=== PATIENT | female | born 1960 | race Caucasian/White ===

== ENCOUNTER 2016-07-04 17:10 | Emergency (ER) | payer OTHER ==
[~2016-07-04] VITALS: Ht 157.5 cm; Wt 79.4 kg
[~2016-07-04 17:10] MED LIST: AMOXIL500 MG PO; CRESTOR5 MG PO; NASONEX0.05 MG/Ac IN; POLYTRIM O200 GTT/BO OPH
[2016-07-04 17:14] VITALS: BP 134/87
--- NOTE | 2016-07-04 17:40 | ED THROAT/DENTAL COMPLAINT ---
History of Present Illness General Chief Complaint: General Adult Stated Complaint: PT HAS THROAT PROBLEM Source: patient Exam Limitations: no limitations Vital Signs & Intake/Output Vital Signs & Intake/Output Vital Signs Date Time Temp Pulse Resp B/P Pulse O2 O2 Flow FiO2 Ox Delivery Rate 07/04 1756 97 07/04 1714 97.4 79 18 134/87 99 Room Air Allergies Coded Allergies: erythromycin base (ABD CRAMPING 07/04/16) Reconcile Medications Lidocaine HCl (Lidocaine HCl Viscous) 2 % SOLUTION 15 ML PO 4 TIMES/DAY sore throat magic mouth wash ( maalox, benadryl, lidocaine) Methylprednisolone. (Medrol) 4 MG TAB.DS.PK 1 DP PO AD sore throat 6 on day 1 then reduce by one tablet daily until gone Rosuvastatin Calcium (Crestor) 5 MG TABLET 1 TAB PO DAILY CHOLESTEROL ( Reported) Triage Note: REPORTS "SCRATCHY THROAT" SINCE YESTERDAY. PAINFULL UPON SWALLOWING. DENIED FEVER. Triage Nurses Notes Reviewed? yes Onset: Abrupt Duration: day(s): Timing: recent history Injury Environment: home No Modifying Factors: none HPI: 56-year-old female comes into emergency room with sore throat since yesterday. Mild cough. Mild associated headache and 2 episodes of loose stool. Denies any abdominal pain. She denies fever chills. patient reports some generalized weakness. Postnasal drip. Nothing seems to make the symptoms better or worse. Denies any other associated symptoms. Past History Travel History Traveled to [place] past 21 day No Medical History Any Pertinent Medical History? 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 No Review of Systems Review of Systems Constitutional: Reports: see HPI. EENTM: Reports: see HPI. Respiratory: Reports: see HPI. Cardiovascular: Reports: no symptoms. GI: Reports: no symptoms. Genitourinary: Reports: no symptoms. Musculoskeletal: Reports: no symptoms. Skin: Reports: no symptoms. Neurological/Psychological: Reports: no symptoms. Hematologic/Endocrine: Reports: no symptoms. Immunologic/Allergic: Reports: no symptoms. All Other Systems: Reviewed and Negative Physical Exam Physical Exam General Appearance: well developed/nourished, no apparent distress, alert, awake Head: atraumatic, normal appearance Eyes: Bilateral: normal appearance, EOMI. Nose: normal inspection Mouth/Throat: PHARYNGEAL ERYTHEMA Neck: normal inspection, supple, full range of motion Cardiovascular/Respiratory: normal breath sounds, regular rate/rhythm, no respiratory distress Back: normal inspection Neurologic/Psych: awake, alert, oriented x 3, normal gait, normal mood/affect Skin: intact, normal color Core Measures ACS in differential dx? No Severe Sepsis Present: No Septic Shock Present: No Progress Differential Diagnosis: aspirated tooth, carious tooth, epiglottitis, Ludwigs angina, meningitis, odontogenic abscess, cortney-tonsillar abscess, pharyngeal for. body, stomatitis/gingivitis, strep pharyngitis, tooth fracture Plan of Care: Orders Procedure Date/time Status THROAT CULTURE W/QUICK STREP 07/04 8255 Active Comments: 07/04/2016 7:10:16 PM Patient clinically looks well. Nontoxic appearing. In no apparent distress. Resting comfortably in room. Follow-up with primary care and return to emergency room if any concerns worsening symptoms. Symptoms consistent with upper wrist or infection. Likely viral. Return if any other concerns. Departure Departure Disposition: HOME OR SELF CARE Condition: Stable Clinical Impression Primary Impression: URI (upper respiratory infection) Referrals: MELISSA SERVIN MD (PCP/Family) Additional Instructions: Take Medrol Dosepak and Magic mouthwash as prescribed. Follow-up with your primary care doctor. Motrin and Tylenol at home. Rest. Drink plenty of fluids. Return if any other concerns worsening symptoms. Departure Forms: Customer Survey General Discharge Information Prescriptions: Current Visit Scripts Lidocaine HCl (Lidocaine HCl Viscous) 15 ML PO 4 TIMES/DAY #100 ML magic mouth wash ( maalox, benadryl, lidocaine) Methylprednisolone. (Medrol) 1 DP PO AD #1 DP 6 on day 1 then reduce by one tablet daily until gone
[2016-07-04] MEDS ORDERED: CRESTOR5 M1 PO (18:15)
[2016-07-04] MEDS ORDERED: LIDOCAINE HCL V15 ML PO (18:58)
[2016-07-04] MEDS ORDERED: MEDROL4 M2 PO (18:58)
== END 2016-07-04 19:05 ==
LOC: ERH 17:10
DX: J06.9 Acute upper respiratory infection, unspecified (principal)

== ENCOUNTER 2016-07-08 21:27 | Emergency (ER) | payer OTHER ==
[~2016-07-08 21:27] MED LIST changes: +CRESTOR5 M1 PO; +LIDOCAINE HCL V15 ML PO; +MEDROL4 M2 PO
[2016-07-08 22:18] LABS: ABSOLUTE BASOPHIL COUNT 0.1 /CUMM (0.0-0.2); ABSOLUTE EOSINOPHIL COUNT 0.1 /CUMM (0.0-0.7); ABSOLUTE GRANULOCYTE CT 10.5 /CUMM (1.4-6.5); ABSOLUTE LYMPH COUNT 2.4 /CUMM (1.2-3.4); ABSOLUTE MONOCYTE COUNT 0.9 /CUMM (0.10-0.60); BASOPHIL % 0.5 % (0.0-2.0); EOSINOPHIL % 0.4 % (0-5); HEMATOCRIT 44.3 % (37-47); MEAN CORPUSCULAR HGB 28.1 PG (27.0-31.0); MEAN CORPUSCULAR HGB CONC 32.9 G/DL (33.0-37.0); MEAN CORPUSCULAR VOLUME 85.4 FL (81.0-99.0); MEAN PLATELET VOLUME 7.8 FL (7.4-10.4); PLATELET COUNT 378 /CUMM (130-400); RBC DISTRIBUTION WIDTH 13.3 % (11.5-14.5); RED BLOOD CELL CT 5.19 /CUMM (4.20-5.40); WHITE BLOOD CELL COUNT 13.9 /CUMM (4.8-10.8)
--- NOTE | 2016-07-08 22:32 | ED GENERAL ADULT ---
History of Present Illness General Chief Complaint: General Adult Stated Complaint: ?ANXIETY Source: patient Exam Limitations: no limitations Vital Signs & Intake/Output Vital Signs & Intake/Output Vital Signs Date Time Temp Pulse Resp B/P Pulse O2 O2 Flow FiO2 Ox Delivery Rate 07/08 2320 96.8 87 18 128/66 98 Room Air 07/086 98 Room Air 07/09 2131 113 26 147/93 98 ED Intake and Output 07/09 0000 07/08 1200 Intake Total 0 Output Total Balance 0 Intake, Oral 0 Patient 175 lb Weight Allergies Coded Allergies: erythromycin base (ABD CRAMPING 07/04/16) methylprednisolone (RASH, PALITATIONS, FIDGETY 07/08/16) Reconcile Medications Lidocaine HCl (Lidocaine HCl Viscous) 2 % SOLUTION 15 ML PO 4 TIMES/DAY sore throat magic mouth wash ( maalox, benadryl, lidocaine) Lorazepam (Ativan) 1 MG TABLET 1 TAB PO BID anxeity Methylprednisolone. (Medrol) 4 MG TAB.DS.PK 1 DP PO AD sore throat 6 on day 1 then reduce by one tablet daily until gone Rosuvastatin Calcium (Crestor) 5 MG TABLET 1 TAB PO DAILY CHOLESTEROL ( Reported) Triage Note: PER PT "JUST DON'T FEEL RIGHT, ANXIOUS SWEATY, JITTERY AND NOT RIGHT" STARTED PREDNISONE WEDNESDAY AFTER ED VISIT. Triage Nurses Notes Reviewed? yes Onset: Abrupt Duration: day(s):, constant Timing: recent history Injury Environment: home Severity: moderate, severe HPI: 56-year-old female comes in for further evaluation of palpitations redness to her face and upper chest and feeling anxious. Denies any chest pain or shortness breath. Patient was seen here the other day for sore throat. Patient described Magic mouthwash as well as Medrol Dosepak. Sore throat has improved. Rash is been present since Wednesday but worse over last 24 hours. Patient reports that she's been feeling shaky and anxious. Denies any other associated symptoms. Denies any pain. (KEITH LICEA) Past History Travel History Traveled to [place] past 21 day No Medical History Any Pertinent Medical History? 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 No (KEITH LICEA) Review of Systems Review of Systems Constitutional: Reports: no symptoms. EENTM: Reports: no symptoms. Respiratory: Reports: no symptoms. Cardiovascular: Reports: see HPI. GI: Reports: no symptoms. Genitourinary: Reports: no symptoms. Musculoskeletal: Reports: no symptoms. Skin: Reports: see HPI. Neurological/Psychological: Reports: no symptoms. Hematologic/Endocrine: Reports: no symptoms. Immunologic/Allergic: Reports: no symptoms. All Other Systems: Reviewed and Negative (KEITH LICEA) Physical Exam Physical Exam General Appearance: well developed/nourished, no apparent distress, alert Head: atraumatic, normal appearance Eyes: Bilateral: normal appearance, EOMI. Ears, Nose, Throat: normal pharynx, normal ENT inspection, hearing grossly normal Neck: normal inspection, full range of motion Respiratory: normal breath sounds, no respiratory distress Cardiovascular: regular rate/rhythm, tachycardia Gastrointestinal: soft Back: normal inspection, normal range of motion Extremities: normal range of motion Neurologic/Psych: awake, alert, oriented x 3, normal gait, normal mood/affect Skin: face is red, upper shoulders and chest and back is ready, Core Measures ACS in differential dx? Yes CVA/TIA Diagnosis: No Severe Sepsis Present: No Septic Shock Present: No (KEITH LICEA) Progress Differential Diagnoses I considered the following diagnoses in my evaluation of the patient: Adverse reaction to medication, cardiac arrhythmia, CO, allergic reaction, Plan of Care: Orders Procedure Date/time Status TROPONIN LEVEL 07/08 2204 Complete COMPREHENSIVE METABOLIC PANEL 07/08 2204 Complete CBC WITHOUT DIFFERENTIAL 07/08 2204 Complete EKG 07/08 2130 Active Laboratory Tests 07/08/162203: Anion Gap 11, Estimated GFR > 60, BUN/Creatinine Ratio 18.8, Glucose 101 H, Calcium 9.9, Total Bilirubin 0.6, AST 21, ALT 46, Alkaline Phosphatase 78, Troponin I < 0.01, Total Protein 7.4, Albumin 4.5, Globulin 2.9, Albumin/ Globulin Ratio 1.6, CBC w Diff NO MAN DIFF REQ, RBC 5.19, MCV 85.4, MCH 28.1, RDW 13.3, MPV 7.8, Gran % 75.0, Lymphocytes % 17.6 L, Monocytes % 6.5, Eosinophils % 0.4, Basophils % 0.5, Absolute Granulocytes 10.5 H, Absolute Lymphocytes 2.4, Absolute Monocytes 0.9 H, Absolute Eosinophils 0.1, Absolute Basophils 0.1, PUBS MCHC 32.9 L Initial ED EKG: normal intervals, normal p-waves, normal sinus rhythm, rate (92) , nonspecific ST T wave chg (KEITH LICEA) Departure Departure Disposition: HOME OR SELF CARE Condition: Stable Clinical Impression Primary Impression: Adverse drug reaction Referrals: MALATHI MINA,MELISSA (PCP/Family) Additional Instructions: Take Benadryl at home and Ativan as needed. Follow-up with your primary care doctor. Return if any concerns worsening symptoms. Please go over all results of today's visit with your primary care doctor. Contact your primary care doctor to let them know you were here in the emergency room. There may be nonspecific findings which may not be related to your visit today here in the emergency room but may require further evaluation and chronic monitoring by your primary care doctor. If you had a laceration today the chance of foreign body always remains. You should follow-up with your primary care doctor for recheck in 3-5 days for a wound check. If you had an x-ray done there is a chance that a fracture could have been missed on initial read and you should follow-up with your primary care doctor for repeat x-rays if symptoms persist. If your blood pressure was elevated here in the emergency room please have rechecked by her primary care doctor within the next 48 hours by your primary care doctor. If you were prescribed a narcotic here in the emergency room or any type of controlled substances you're not allowed to drive while taking this medication or operate any type of heavy machinery. Narcotics can make you feel lightheaded dizziness nausea and can cause constipation. 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 Thank you for choosing [facility] emergency room. Please return to the emergency room immediately if you have any other concerns worsening of symptoms. Departure Forms: Customer Survey General Discharge Information Prescriptions: Current Visit Scripts Lorazepam (Ativan) 1 TAB PO BID #10 TAB Comments 07/09/2016 12:22:20 AM Patient clinically looks well. Patient is nontoxic-appearing. Patient is in no apparent distress. Patient resting comfortably in room. Patient feels better after medications here in the emergency room. Redness has improved. Symptoms likely related to side effects from prednisone. Patient told to discontinue the last 2 doses due to resolution of her sore throat. Follow-up with primary care doctor. Return if any other concerns. Patient understands and agrees with plan of care. Case discussed with dr hernandez. (KEITH LICEA) PA/LOG FEEDER Co-Sign Statement Statement: ED Attending supervision documentation- [] I saw and evaluated the patient. I have also reviewed all the pertinent lab results and diagnostic results. I agree with the findings and the plan of care as documented in the PA's/LOG FEEDER's documentation. [X] I have reviewed the ED Record and agree with the PA's/LOG FEEDER's documentation. [] Additions or exceptions (if any) to the PAs/LOG FEEDER's note and plan are summarized below: [] (LEANNE MINA,SOPHIA Noland) Critical Care Note Critical Care Note Critical Care Time: non-applicable (KEITH LICEA)
[2016-07-08 23:20] VITALS: BP 128/66
[2016-07-08] MEDS ORDERED: IBUPROFEN800 M1 PO (23:21)
--- NOTE | 2016-07-08 23:50 | RADIOLOGY REPORT ---
EXAMINATION: CHEST 2 VIEWS CLINICAL INFORMATION: Cough. COMPARISON: None. TECHNIQUE: PA and lateral views of the chest were obtained. FINDINGS: The cardiac silhouette is not enlarged. The mediastinal and hilar contours are unremarkable. There are neither pleural effusions nor pneumothoraces. There are no consolidations. The osseous structures are unremarkable. IMPRESSION: No evidence for acute disease.
[2016-07-09] MEDS ORDERED: ATIVAN1 M1 PO (00:04)
== END 2016-07-09 00:12 ==
LOC: ERH 21:27
PROVIDERS: Physician Assistant Medical
DX: T50.905A Adverse effect of unspecified drugs, medicaments and biological substances, initial encounter (principal); R00.2 Palpitations
CPT/HCPCS: 93005; 93010

== ENCOUNTER 2016-07-15 11:13 | Observation (INO) | payer OTHER ==
[~2016-07-15] VITALS: Ht 154.9 cm; Wt 79.4 kg
[~2016-07-15 11:13] MED LIST changes: +ATIVAN1 M1 PO; +IBUPROFEN800 M1 PO
--- NOTE | 2016-07-15 11:21 | NUR ---
56 Y/O FEMALE C/O "NERVES, ANXIETY" X 1 WEEK. WAS ON PREDNISONE FOR SORE THROAT AND THOUGHT ANXIETY WAS RELATED TO THAT. STOPPED PREDNISONE AND TRIED ATIVAN (PRESCRIBED FROM THIS ED) BUT THEN SAW DR SERVIN AND ATIVAN WAS CHANGED TO 0.5MG XANAX. PT STATES XANAX IS HELPING "BUT DOESNT LAST LONG ENOUGH". DENIES PHYSICAL COMPLAINTS. APPEARS JITTERY IN TRIAGE - LEG BOUNCING NOTED.
--- NOTE | 2016-07-15 11:31 | NUR ---
TRIAGE NOTE APPRECIATED Campos ANDERSON AT BEDSIDE FOR EVAL
[2016-07-15] MEDS ORDERED: ALPRAZOLAM0.5 M4 PO (11:52)
[2016-07-15] MEDS ORDERED: CITALOPRAM HBR20 MG PO (11:52)
--- NOTE | 2016-07-15 12:01 | ED PSYCHIATRIC COMPLAINT ---
History of Present Illness General Chief Complaint: General Adult Stated Complaint: ANXIETY, SORE THROAT Source: patient, family, old records Exam Limitations: no limitations Vital Signs & Intake/Output Vital Signs & Intake/Output Vital Signs Date Time Temp Pulse Resp B/P Pulse O2 O2 Flow FiO2 Ox Delivery Rate 07/15 1430 97.6 78 18 128/82 97 Room Air 07/15 1430 97.6 78 18 128/82 97 Room Air 07/15 1119 97.8 91 18 148/90 100 Room Air Allergies Coded Allergies: erythromycin base (ABD CRAMPING 07/04/16) methylprednisolone (RASH, PALITATIONS, FIDGETY 07/08/16) Reconcile Medications Alprazolam 0.5 MG TABLET 1 TAB PO Q6-PRN PRN ANXIETY (Reported) Citalopram Hydrobromide (Citalopram HBr) 20 MG TABLET 1 TAB PO DAILY MENTAL HEALTH (Reported) Rosuvastatin Calcium (Crestor) 5 MG TABLET 1 TAB PO DAILY CHOLESTEROL ( Reported) Triage Note: 56 Y/O FEMALE C/O "NERVES, ANXIETY" X 1 WEEK. WAS ON PREDNISONE FOR SORE THROAT AND THOUGHT ANXIETY WAS RELATED TO THAT. STOPPED PREDNISONE AND TRIED ATIVAN (PRESCRIBED FROM THIS ED) BUT THEN SAW DR SERVIN AND ATIVAN WAS CHANGED TO 0.5MG XANAX. PT STATES XANAX IS HELPING "BUT DOESNT LAST LONG ENOUGH". DENIES PHYSICAL COMPLAINTS. APPEARS JITTERY IN TRIAGE - LEG BOUNCING NOTED. Triage Nurses Notes Reviewed? yes Onset: 2 weeks Duration: week(s):, constant, continues in ED Timing: recent history Severity: severe Associated Symptoms: anxiety, impaired concentration, insomnia LMP (ages 10-50): post menopausal : No Patient currently breastfeeds: No HPI: 2 weeks prior to admission patient was prescribed Medrol Dosepak for sore throat subsequently developing palpitations difficulty concentrating insomnia and anxiety generalized tremors. She denies fever chills nausea vomiting diarrhea abdominal pain dysuria rash headache bleeding. She's been prescribed citalopram and Xanax with improvement in sleep and anxiety symptoms. Past History Travel History Traveled to [place] past 21 day No Medical History Any Pertinent Medical History? 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 No Review of Systems Review of Systems Constitutional: Reports: no symptoms. EENTM: Reports: no symptoms. Respiratory: Reports: no symptoms. Cardiovascular: Reports: no symptoms. GI: Reports: no symptoms. Genitourinary: Reports: no symptoms. Musculoskeletal: Reports: no symptoms. Skin: Reports: no symptoms. Neurological/Psychological: Reports: see HPI, anxiety, confusion. Hematologic/Endocrine: Reports: no symptoms. Immunologic/Allergic: Reports: no symptoms. All Other Systems: Reviewed and Negative Physical Exam Physical Exam General Appearance: well developed/nourished, alert, awake, anxious, mild distress Head: atraumatic Eyes: Bilateral: PERRL, EOMI. 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 patient not suicidal Progress Differential Diagnosis: drug intoxication, drug overdose, drug withdrawal, electrolyte abnormality, hypoglycemia Plan of Care: Orders Procedure Date/time Status Regular Diet 07/15 L Active Teach/Educate 07/15 1446 Active Pain Treatment and Response 07/15 1446 Active Nutritional Intake, Monitor 07/15 1446 Active Isolation 07/15 1446 Active Patient Care Conference 07/15 1446 Active Patient Data 07/15 1402 Active Intake & Output 07/15 1328 Active OXYGEN SETUP (GEN) 07/15 1321 Active Saline Lock 07/[address] in observation 07/15 1321 Active Vital Signs 07/15 1321 Active Activity/Ambulation 07/15 1321 Active Code Status 07/15 1321 Active TSH REFLEX 07/15 1312 Complete TROPONIN LEVEL 07/15 1312 Complete METANEPHRINE FRACTIONATED Ref$ 07/15 1312 Active COMPREHENSIVE METABOLIC PANEL 07/15 1312 Complete CBC WITHOUT DIFFERENTIAL 07/15 1312 Complete URINE DRUG SCREEN FOR ER ONLY 07/15 1216 Complete URINALYSIS 07/15 1216 Complete Laboratory Tests 07/15/16 1330: Anion Gap 10, Estimated GFR > 60, BUN/Creatinine Ratio 16.7, Glucose 92, Calcium 9.8, Total Bilirubin 0.8, AST 25, ALT 47, Alkaline Phosphatase 74, Troponin I < 0.01, Total Protein 7.4, Albumin 4.3, Globulin 3.1, Albumin/Globulin Ratio 1.4, TSH &T3 &Free T4 Intrp 1.460, CBC w Diff NO MAN DIFF REQ, RBC 5.33, MCV 85.7, MCH 28.6, RDW 13.4, MPV 7.9, Gran % 72.8, Lymphocytes % 20.7, Monocytes % 5.7, Eosinophils % 0.4, Basophils % 0.4, Absolute Granulocytes 7.4 H, Absolute Lymphocytes 2.1, Absolute Monocytes 0.6, Absolute Eosinophils 0, Absolute Basophils 0, PUBS MCHC 33.3 07/15/16 1215: Urine Opiates Screen < 100.00, Methadone Screen < 40, Barbiturate Screen < 60, Ur Phencyclidine Scrn < 6.00, Amphetamines Screen < 100, U Benzodiazepines Scrn 699 H, Urine Cocaine Screen < 50, Urine Cannabis Screen 61.90 H, Urinalysis LIGHT H, Urine Color YEL, Urine Clarity CLEAR, Urine pH 6.0, Ur Specific [place] 1.010, Urine Protein NEG, Urine Ketones TRACE H, Urine Nitrite NEG, Urine Bilirubin NEG, Urine Urobilinogen 0.2, Ur Leukocyte Esterase NEG, Ur Microscopic SEDIMENT EXAMINED, Urine RBC RARE, Urine WBC RARE, Ur Epithelial Cells FEW, Urine Bacteria RARE H, Urine Hemoglobin MOD H, Urine Glucose NEG 07/15/16 1154: Methadone Screen Cancelled, Barbiturate Screen Cancelled, Ur Phencyclidine Scrn Cancelled, Amphetamines Screen Cancelled, U Benzodiazepines Scrn Cancelled, Urine Cocaine Screen Cancelled, Urine Cannabis Screen Cancelled Departure Departure Disposition: STILL A PATIENT Condition: Stable Clinical Impression Primary Impression: Adverse drug reaction Secondary Impressions: Generalized anxiety disorder Referrals: MALATHI MINA,MELISSA (PCP/Family) Departure Forms: Customer Survey General Discharge Information Observation Note Spoke With: JORDI MINA,Tyesha CARMONA Physician Advisor Notified: KENNEDI MINA,ROS Noland Place Patient In: Non-ED OBS Care Area Rationale for Observation: My rational for observation is as follows psychiatry evaluation medication adjustment 24-hour urine collection.
--- NOTE | 2016-07-15 12:18 | NUR ---
URINE SPEC. SENT
--- NOTE | 2016-07-15 13:25 | NUR ---
PLAN IS FOR 23 HOUR ADMISSION TO FLOOR. PT MOVED TO ER ROOM 12. FAMILY AT BEDSIDE. Informed waiting has been performed.
[2016-07-15 13:50] LABS: ABSOLUTE BASOPHIL COUNT 0 /CUMM (0.0-0.2); ABSOLUTE EOSINOPHIL COUNT 0 /CUMM (0.0-0.7); ABSOLUTE GRANULOCYTE CT 7.4 /CUMM (1.4-6.5); ABSOLUTE LYMPH COUNT 2.1 /CUMM (1.2-3.4); ABSOLUTE MONOCYTE COUNT 0.6 /CUMM (0.10-0.60); BASOPHIL % 0.4 % (0.0-2.0); EOSINOPHIL % 0.4 % (0-5); GRANULOCYTE % 72.8 % (42.2-75.2); HEMATOCRIT 45.7 % (37-47); MEAN CORPUSCULAR HGB 28.6 PG (27.0-31.0); MEAN CORPUSCULAR HGB CONC 33.3 G/DL (33.0-37.0); MEAN CORPUSCULAR VOLUME 85.7 FL (81.0-99.0); MEAN PLATELET VOLUME 7.9 FL (7.4-10.4); PLATELET COUNT 370 /CUMM (130-400); RBC DISTRIBUTION WIDTH 13.4 % (11.5-14.5); RED BLOOD CELL CT 5.33 /CUMM (4.20-5.40); WHITE BLOOD CELL COUNT 10.2 /CUMM (4.8-10.8)
[2016-07-15 14:30] VITALS: BP 128/82
--- NOTE | 2016-07-15 14:45 | NUR ---
RESTING ON STRETCHER. RR WNL. FAMILY AT BEDSIDE. AWARE OF WAIT FOR BED ON GEN MED. Informed waiting has been performed.
--- NOTE | 2016-07-15 15:54 | NUR ---
PT STATES THAT SHE IS UNABLE TO VOID AT THIS TIME.
--- NOTE | 2016-07-15 16:20 | History & Physical ---
General Information and HPI Allergies/Medications Allergies: Coded Allergies: erythromycin base (ABD CRAMPING 07/04/16) methylprednisolone (RASH, PALITATIONS, FIDGETY 07/08/16) Home Med list Alprazolam 0.5 MG TABLET 1 TAB PO Q6-PRN PRN ANXIETY (Reported) Citalopram Hydrobromide (Citalopram HBr) 20 MG TABLET 1 TAB PO DAILY MENTAL HEALTH (Reported) Rosuvastatin Calcium (Crestor) 5 MG TABLET 1 TAB PO DAILY CHOLESTEROL ( Reported) Past History Travel History Traveled to [place] past 21 day No Medical History Neurological: NONE EENT: NONE Cardiovascular: hyperlipidemia Respiratory: NONE Gastrointestinal: NONE Hepatic: NONE Renal: NONE Musculoskeletal: NONE Psychiatric: NONE Endocrine: NONE Blood Disorders: NONE Cancer(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
--- NOTE | 2016-07-15 18:30 | NUR ---
FAMILY AT BEDSIDE, PT STATES SHE HAS NO COMPLAINTS AT THIS TIME.. HOUSE STAFF AT BEDSIDE
--- NOTE | 2016-07-15 19:46 | NUR ---
BED ASSIGNMENT [id number]
--- NOTE | 2016-07-15 20:00 | NUR ---
PT MEDICATED PER EMAR WITH XANAX
--- NOTE | 2016-07-15 20:04 | NUR ---
PT AMBUALTES TO BATHROOM WITH STRONG STEADY GAIT... PT TO START 24 HOUR URINE TEST WHEN GOING TO ROOM,
--- NOTE | 2016-07-15 20:22 | NUR ---
REPORT GIVEN TO LUIS MORRIS
--- NOTE | 2016-07-15 21:10 | History & Physical ---
[facility] 07/15/162053: General Information and HPI MD Statement: I have seen and personally examined NAHUN NUR and documented this H&P. The patient is a 56 year old F who presented with a patient stated chief complaint of [anxiety]. Source of Information: patient, family Exam Limitations: no limitations History of Present Illness: Patient is a 56-year-old female with past medical history of hyperlipidemia presented to the ER with a chief complaint of nervousness and anxiety for one week. Patient was seen in the ER about 1 week back for a sore throat and was prescribed a Medrol Dosepak. She took it for about 4 days and started feeling a lot of anxiety, flushing of her face and palpitations. She had insomnia and some generalized tremors. She also mentions a few episodes of diarrhea at home. Denies any chest pain, nausea, vomiting, fevers, chills .She stopped taking the Medrol Dosepak and came to the ER for help and was prescribed Ativan. She then saw her PCP Junior Servin MD who gave her some Xanax and citalopram seemed improved her symptoms. Currently she is taking citalopram and Xanax and does feel improvement in her symptoms. Patient feels that her symptoms are not resolving and she needs further investigation regarding the cause. She is to follow-up with Dr. Gutierrez and Dr. Gutierrez as an outpatient. Does not smoke, no alcohol history, no history of difficult drug abuse. Allergies/Medications Allergies: Coded Allergies: erythromycin base (ABD CRAMPING 07/04/16) methylprednisolone (RASH, PALITATIONS, FIDGETY 07/08/16) Past History Travel History Traveled to [place] past 21 day No Medical History Neurological: NONE EENT: NONE Cardiovascular: hyperlipidemia Respiratory: NONE Gastrointestinal: NONE Hepatic: NONE Renal: NONE Musculoskeletal: NONE Psychiatric: NONE Endocrine: NONE Blood Disorders: NONE Cancer(s): NONE SHANK PAPERER/Reproductive: NONE Isolation History: Standard Surgical History Surgical History: (2) Past Family/Social History Psychosocial History Smoking Status: Never Smoked Review of Systems Review of Systems Constitutional: Reports: weakness. EENTM: Reports: no symptoms. Cardiovascular: Reports: palpitations. Respiratory: Reports: no symptoms. GI: Reports: diarrhea. Genitourinary: Reports: no symptoms. Musculoskeletal: Reports: no symptoms. Skin: Reports: no symptoms. Neurological/Psychological: Reports: anxiety, tremors. Exam & Diagnostic Data Last 24 Hrs of Vital Signs/I&O Vital Signs Date Time Temp Pulse Resp B/P Pulse O2 O2 Flow FiO2 Ox Delivery Rate 07/15 1726 74 18 122/67 95 Room Air 07/15 1430 97.6 78 18 128/82 97 Room Air 07/15 1430 97.6 78 18 128/82 97 Room Air 07/15 1119 97.8 91 18 148/90 100 Room Air Intake & Output 07/15 1600 07/15 0800 07/15 0000 Intake Total 120 Output Total Balance 120 Intake, Oral 120 Patient 79.379 kg Weight Physical Exam General Appearance Alert, Oriented X3, Cooperative, Mild Distress Skin flushed HEENT Atraumatic, PERRLA, EOMI Neck Supple, No JVD Lymphatic Cervical nl Cardiovascular Normal S1, Normal S2, No Murmurs, tachycardic Lungs Clear to Auscultation, Normal Air Movement Abdomen Normal Bowel Sounds, Soft, No Tenderness Neurological Normal Gait, Normal Speech, Strength at 5/5 X4 Ext, Normal Tone, Sensation Intact, Cranial Nerves 3-12 NL, Reflexes 2+ Extremities No Clubbing, No Cyanosis, No Edema, Normal Pulses Assessment/Plan Assessment: Patient is a 56-year-old female with past medical history of hyperlipidemia presented to the ER with a chief complaint of nervousness and anxiety for one week after taking Medrol Dosepak. She also admits to having palpitations, insomnia, diarrhea. Vitals and labs in the ER has been normal. UA benign He tox positive for benzos and cannabis Plan: #Generalized anxiety palpitations, tremor, insomnia: Differentials could be panic attack, generalized anxiety disorder, atrial fibrillation, supraventricular tachycardias, carcinoid syndrome, hyperthyroidism, Allergy reaction to medication -Admit the patient to [facility] -Check an EKG stat -Check vitamin B-12 and vitamin D LEVELS -Closely monitor electrolytes and replete as needed -Check CAT scan of the abdomen to rule out intra-abdominal carcinoid?? -24-hour urine collection for 5 hydroxyindoleacetic acid level -Continue Xanax 1 mg when necessary for anxiety -IV Benadryl as needed -Psychiatry evaluation in a.m. Mild pain pathway Regular diet Full code As Ranked By This Provider Problem List: 1. Palpitations Core Measures/Miscellaneous Acute Coronary Syndrome ACS Diagnosis: No Cerebrovascular Accident CVA/TIA Diagnosis: No Congestive Heart Failure CHF Diagnosis: No Venous Thromboembolism VTE Risk Factors: Age > 40, Obesity No VTE Pharm Prophylaxis d/t: No contraindications VTE Diagnosis: No VTE Type: NONE VTE Confirmed by (Test): NONE Severe Sepsis Severe Sepsis Present: No Septic Shock Septic Shock Present: No Miscellaneous Documentation Attending Case Discussed With: Tyesha GUTIERREZ MD Primary Care Physician: MELISSA SERVIN MD Patient sees these Specialists valarie Level of Patient Care: General Medicine Tyesha GUTIERREZ MD 07/16/16 1034: General Information and HPI Allergies/Medications Home Med list Alprazolam 0.5 MG TABLET 1 TAB PO Q8P PRN ANXIETY Citalopram Hydrobromide (Citalopram HBr) 20 MG TABLET 1 TAB PO DAILY MENTAL HEALTH (Reported) Nystatin 100,000 UNIT/ML ORAL.SUSP 5 ML PO 4 TIMES/DAY THRUSH Rosuvastatin Calcium (Crestor) 5 MG TABLET 1 TAB PO DAILY CHOLESTEROL ( Reported) Core Measures/Miscellaneous Venous Thromboembolism No Mech VTE prophylaxis d/t: VTE low risk Attending MD Review Statement Attending Statement Attending MD Statement: examined this patient, discuss w/resident/PA/COMBINER OPERATOR, agreed w/resident/PA/COMBINER OPERATOR, reviewed EMR data (avail), reviewed images, amended to note Attending Assessment/Plan: I have personally seen and examined the patient, and agree with the above assessment. We will admit the patient for 23 hour observation and start her on antianxiety medications. We will discuss the issues with psychiatry. The patient does have evidence of thrush and will be treated with nystatin swish and swallow. I will continue to follow the patient and provide further recommendations as necessary.
[2016-07-15 21:35] VITALS: BP 142/82
--- NOTE | 2016-07-15 22:00 | NUR ---
NURSING NOTE: PT ARRIVED TO [facility] VIA STRETCHER @ 2039. PT A&O X3, FAMILY @ BEDSIDE. PT APPEARS ANXIOUS/JITTERY, BUT COOPERATIVE. OBSERVATION INTAKE FORM COMPLETED IN ED. PHYSICAL ASSESSMENT COMPLETED. PT ORIENTED TO ROOM, STAFF, AND CALL GABRIEL. PT MADE AWARE OF 24H URINE COLLECTION WHICH WILL BE STARTED AT MIDNIGHT. RN WILL CONTINUE TO MONITOR.
--- NOTE | 2016-07-16 07:07 | PN- Housestaff ---
Subjective Follow-up For: Anxiety Complaints: persistent anxiety related symptoms Subjective: I followed up and examined the patient today. She is alert, seems anxious, fidgety, and is complaining about her fear that her anxiety symptoms are coming back. She says she feels anxious, and that she usually gets flushed up whenever this happens. She denies any chest pain, palpitation, sweating, nausea, vomiting , diarrhea, shortness of breath, fever. Vitals have been stable, no issues overnight. Awaiting psychiatric consultation today. Review of Systems Constitutional: Reports: no symptoms. EENTM: Reports: no symptoms. Cardiovascular: Reports: no symptoms. Respiratory: Reports: no symptoms. Gastrointestinal: Reports: no symptoms. Genitourinary: Reports: no symptoms. Musculoskeletal: Reports: no symptoms. Skin: Reports: see HPI. Neurological/Psychological: Reports: see HPI, anxiety. Denies: confusion, depressed, dementia, headache, numbness, paresthesia, tingling, tremors, tonic-clonic seizures, weakness. Hematologic/Endocrine: Reports: no symptoms. Objective Last 24 Hrs of Vital Signs/I&O Vital Signs Date Time Temp Pulse Resp B/P Pulse O2 O2 Flow FiO2 Ox Delivery Rate 07/16 0824 20 120/84 07/16 0732 97.0 72 0 140/78 96 Room Air 07/15 2135 97.7 72 20 142/82 96 Room Air 07/15 1726 74 18 122/67 95 Room Air Intake & Output 07/16 1600 07/16 0800 07/16 0000 Intake Total 880 200 450 Output Total 600 200 Balance 280 0 450 Intake, IV 0 Intake, Oral 880 200 450 Number 0 Bowel Movements Output, Urine 600 200 Patient 79.379 kg Weight Physical Exam General Appearance: Alert, Oriented X3, Cooperative, Mild Distress, anxious Other Physical Findings: General Appearance Alert, Oriented X3, Cooperative, Mild Distress Skin normal HEENT Atraumatic, PERRLA, EOMI Neck Supple, No JVD Lymphatic Cervical nl Cardiovascular Normal S1, Normal S2, No Murmurs, tachycardic Lungs Clear to Auscultation, Normal Air Movement Abdomen Normal Bowel Sounds, Soft, No Tenderness Neurological anxious, tremors +/-, Normal Gait, Normal Speech, Strength at 5/5 X4 Ext, Normal Tone, Sensation Intact, Cranial Nerves 3-12 NL, Reflexes 2+ Extremities No Clubbing, No Cyanosis, No Edema, Normal Pulses Current Medications: Current Medications Sig/Nayana Start time Last Medication Dose Route Stop Time Status Admin Acetaminophen 325 MG Q6P PRN 07/15 183 AC PO Alprazolam 0 .STK-MED ONE 07/15 1954 DC PO Alprazolam 1 MG TIDPRN PRN 07/15 194 AC 07/16 PO 07/22 1944 0812 Atorvastatin Calcium 5 MG 1700 07/16 0100 AC 07/16 PO 0147 Diphenhydramine HCl 25 MG Q6P PRN 07/15 211 AC PO Enoxaparin Sodium 0 .STK-MED ONE 07/16 1955 DC SC Enoxaparin Sodium 40 MG DAILY 07/15 182 AC SC Nystatin 5 ML 4 TIMES/DAY 07/16 1000 AC 07/16 PO 1427 Oxycodone HCl 5 MG Q6P PRN 07/15 183 AC PO Oxycodone/ 2 TAB Q6P PRN 07/15 183 AC Acetaminophen PO Patient Medication 1 ED .STK-MED ONE 07/16 1358 DC Teaching ED 07/16 1359 Assessment/Plan Assessment: Patient is a 56-year-old female with past medical history of hyperlipidemia, who presented to the ER with chief complaint of nervousness and anxiety for one week after taking Medrol dose-pack for sorethroat. She also admits to having palpitations, insomnia, diarrhea. Vitals and labs in the ER was normal. UA benign He tox positive for benzos and cannabis. She is currently being managed in the general medical floor for the following issues: #Generalized anxiety palpitations, tremor, insomnia: -Continue Xanax 1 mg when necessary for anxiety -negative CAT scan of abdomen ruling out intra-abdominal carcinoid, normal TFT, Vit b12 -Awaiting 24-hour urine collection for 5 hydroxyindoleacetic acid level -Psych consultation appreciated. -She can be discharged according to Psych with her home meds for now and follow up with outpatient Psych service as soon as possible. 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 -Discussed with the patient, will discharge the patient accordingly. Attending notified, and agrees with the plan. #She needs an extension for her observation status, as her 24-hr urine test for 5 hydroxyindoleacetic acid levelis not complete. It will be over at midnight tonight. She can be discharged early tomorrow. #Vitamin D level was low, so supplement started at 1000 U daily. Mild pain pathway Regular diet Full code Problem List: 1. Generalized anxiety disorder Pain Ratin Pain Location: - Pain Goal: Remain pain free Pain Plan: prn Tomorrow's Labs & Rationales: -
[2016-07-16 07:32] VITALS: BP 140/78
[2016-07-16 08:24] VITALS: BP 120/84
--- NOTE | 2016-07-16 09:44 | NUR ---
PT LEFT FLOOR VIA STRETCHER TO CT SCAN.
--- NOTE | 2016-07-16 10:15 | CT SCAN REPORT ---
EXAMINATION: CT ABDOMEN AND PELVIS WITHOUT CONTRAST CLINICAL INFORMATION: 56-year-old female with flushing and palpitations. Evaluate for intra-abdominal tumor. COMPARISON: CT abdomen and pelvis 08/19/2005 TECHNIQUE: Multidetector volumetric imaging was performed from the superior aspect of the liver through the pubic symphysis. Sagittal and coronal reformatted images were obtained on the technologist's workstation. DLP: 424.61 mGy-cm FINDINGS: Limited evaluation of the solid organs and vascular structures secondary to lack of IV contrast. LUNG BASES: Mild linear atelectasis/scarring present at the lung bases. No pericardial effusion. LIVER, GALLBLADDER, AND BILIARY TREE: The unenhanced liver is normal in size, shape, and attenuation. No focal hepatic lesion or biliary ductal dilatation is present. The gallbladder is unremarkable with no evidence of radiopaque gallstones, gallbladder wall thickening, or obvious pericholecystic inflammatory changes. PANCREAS: Unremarkable. SPLEEN: Unremarkable. ADRENAL GLANDS: Unremarkable. KIDNEYS AND URETERS: The kidneys are normal in size, shape, and attenuation. No hydronephrosis, hydroureter, or calculi seen. No perinephric stranding. BLADDER: Unremarkable. GASTROINTESTINAL TRACT: There is no bowel obstruction, free intraperitoneal air or fluid. Appendix is within normal limits. There is mild sigmoid diverticulosis without CT evidence of acute diverticulitis. ABDOMINAL WALL: No significant hernia is appreciated. LYMPH NODES: There are no pathologically enlarged mesenteric, retroperitoneal or pelvic lymph nodes. VASCULAR: Nonaneurysmal abdominal aorta. PELVIC VISCERA: Surgical clips are seen within the pelvis. Uterus is present. No adnexal masses seen. OSSEOUS STRUCTURES: No aggressive osseous lesions. Mild degenerative changes are seen throughout the spine. IMPRESSION: 1. No acute intra-abdominal or pelvic abnormality. No definite intra-abdominal tumor identified on this noncontrast examination. 2. Mild sigmoid diverticulosis without CT evidence of acute diverticulitis.
--- NOTE | 2016-07-16 10:28 | PN- Pulmonary ---
Subjective HPI/Critical Care Issues: The patient is awake and alert. She reports having ongoing intermittent anxiety despite receiving Xanax. She denies any shortness of breath, chest pain, fever, chills, or sputum production. She continues to complain of a sore throat. There were no overnight events reported. Objective Current Medications: Current Medications Sig/Nayana Start time Last Medication Dose Route Stop Time Status Admin Acetaminophen 325 MG Q6P PRN 07/15 1830 AC PO Alprazolam 0 .STK-MED ONE 07/15 1954 DC PO Alprazolam 1 MG TIDPRN PRN 07/15 1945 AC 07/16 PO 07/22 1944 0812 Alprazolam 0 .STK-MED ONE 07/15 1210 DC PO Alprazolam 1 MG ONCE ONE 07/15 1200 DC 07/15 PO 07/15 1201 1209 Atorvastatin Calcium 5 MG 1700 07/16 0100 AC 07/16 PO 0147 Diphenhydramine HCl 25 MG Q6P PRN 07/15 2115 AC PO Enoxaparin Sodium 0 .STK-MED ONE 07/16 1955 DC SC Enoxaparin Sodium 40 MG DAILY 07/15 1822 AC SC Nystatin 5 ML 4 TIMES/DAY 07/16 1000 AC PO Oxycodone HCl 5 MG Q6P PRN 07/15 1830 AC PO Oxycodone/ 2 TAB Q6P PRN 07/15 1830 AC Acetaminophen PO Vital Signs & I&O Last 24 Hrs of Vitals and I&O: Vital Signs Date Time Temp Pulse Resp B/P Pulse O2 O2 Flow FiO2 Ox Delivery Rate 07/16 0824 20 120/84 07/16 0732 97.0 72 0 140/78 96 Room Air 07/15 2135 97.7 72 20 142/82 96 Room Air 07/15 1726 74 18 122/67 95 Room Air 07/15 1430 97.6 78 18 128/82 97 Room Air 07/15 1430 97.6 78 18 128/82 97 Room Air 07/15 1119 97.8 91 18 148/90 100 Room Air Intake & Output 07/16 1600 07/16 0800 07/16 0000 Intake Total 200 450 Output Total 200 Balance 0 450 Intake, IV 0 Intake, Oral 200 450 Output, Urine 200 Patient 175 lb Weight Physical Exam General Appearance Alert, Oriented X3, Cooperative Skin flushed HEENT Atraumatic, PERRLA, EOMI Neck Supple, No JVD Lymphatic Cervical nl Cardiovascular Normal S1, Normal S2, No Murmurs, tachycardic Lungs Clear to Auscultation, Normal Air Movement Abdomen Normal Bowel Sounds, Soft, No Tenderness Extremities No Clubbing, No Cyanosis, No Edema, Normal Pulses Results Last 24 Hrs of Lab Results: Laboratory Tests 07/15/16 1330: Anion Gap 10, Estimated GFR > 60, BUN/Creatinine Ratio 16.7, Glucose 92, Calcium 9.8, Total Bilirubin 0.8, AST 25, ALT 47, Alkaline Phosphatase 74, Troponin I < 0.01, Total Protein 7.4, Albumin 4.3, Globulin 3.1, Albumin/Globulin Ratio 1.4, Vitamin B12 693, 25-OH Vitamin D Total 26.7 L, TSH &T3 &Free T4 Intrp 1.460, CBC w Diff NO MAN DIFF REQ, RBC 5.33, MCV 85.7, MCH 28.6, RDW 13.4, MPV 7.9, Gran % 72.8, Lymphocytes % 20.7, Monocytes % 5.7, Eosinophils % 0.4, Basophils % 0.4, Absolute Granulocytes 7.4 H, Absolute Lymphocytes 2.1, Absolute Monocytes 0.6, Absolute Eosinophils 0, Absolute Basophils 0, PUBS MCHC 33.3 07/15/16 1215: Urine Opiates Screen < 100.00, Methadone Screen < 40, Barbiturate Screen < 60, Ur Phencyclidine Scrn < 6.00, Amphetamines Screen < 100, U Benzodiazepines Scrn 699 H, Urine Cocaine Screen < 50, Urine Cannabis Screen 61.90 H, Urinalysis LIGHT H, Urine Color YEL, Urine Clarity CLEAR, Urine pH 6.0, Ur Specific [place] 1.010, Urine Protein NEG, Urine Ketones TRACE H, Urine Nitrite NEG, Urine Bilirubin NEG, Urine Urobilinogen 0.2, Ur Leukocyte Esterase NEG, Ur Microscopic SEDIMENT EXAMINED, Urine RBC RARE, Urine WBC RARE, Ur Epithelial Cells FEW, Urine Bacteria RARE H, Urine Hemoglobin MOD H, Urine Glucose NEG 07/15/16 1154: Methadone Screen Cancelled, Barbiturate Screen Cancelled, Ur Phencyclidine Scrn Cancelled, Amphetamines Screen Cancelled, U Benzodiazepines Scrn Cancelled, Urine Cocaine Screen Cancelled, Urine Cannabis Screen Cancelled Impression/Plan Impression/Plan Impression/Plan: 1. Anxiety/panic attacks. 2. History of hyperlipidemia. 3. Urine tox screen positive for benzos and cannabis. 4. Thrush. Recommendations: * Await psychiatry input. * Continue Xanax as needed. * Nystatin swish and swallow for thrush. * Continue the patient on the pain pathway. * DVT prophylaxis. * Continue all supportive care.
--- NOTE | 2016-07-16 14:29 | Cons- Psychiatry ---
Psychiatric Consult Date of Consult: 07/16/16 Reason for Consult: "Anxiety" History of Present Illness: Identifying Info: Patient is a 56-year old female who presented to ED with complaints of anxiety and a sore throat. CC: "I've been jittery and nervous over the last two weeks, I don't know what's going on." HPI: Jammie reported symptoms of jitteriness, nervousness, hot flashes, and racing thoughts started approximately two weeks ago. She denied these symptoms prior to then. She denied any relationship stressors; however reported increased stress at work and a growing workload at her job. She suspects new onset anxiety is related to this. She reported experiencing her first "anxiety attack" approximately 2 weeks ago while home. She was subsequently seen by her PCP, Dr. Edward, who prescribed her Celexa 20mg daily and Xanax 0.5mg TID. She reported she felt symptoms had mildly improved on these medicataions, but then again experienced a repeat bout of anxiety leading her to presenting to ED on 07/15/16. She denied excessive intake of caffeine. Utox was (+) for cannabis, however patient did not comment further on this when asked. She denied the use of all other substances. PMH: Hyperlipidemia Please see the H&P for a complete listing Past Psych History: -Outpatient: denied -Inpatient: denied Family Psych History: denied a known family history of psychiatric illness. Substance History: 07/15/16 Utox (+) cannabis. Patient did not disclose use of substances on interview. -Treatment: denied Family Substance History: denied Social: female who resides in [place], [place] with and 30 y/o son. 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 Reports multiple supports, including friends and family. 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 Assessment/Plan Mental Status Mental Status Exam: Presentation/Appearance: Cooperative, easily engaging in conversation. Dressed in hospital garb. Orientation: person, place, time and situation. Sensorium: Awake and alert Eye contact: Appropriate Affect: Calm, constricted Mood: "I feel good now." Depression: 0/10 Anxiety: 2/10 Thought Content: appropriate - Denies SI/HI, AH/VH, PI. States and also believes she will not kill herself. - Denies Hopeless/Helpless Thoughts Thought Process: organized, goal-directed. Speech: normal in rate, tone and volume. Judgment: Fair Insight: Fair Cognition: grossly intact Memory: grossly intact Attention/Concentration: intact Brief ROS Gait: did not observe patient ambulating. Sleep: "good" Appetite: "fine" Energy: "not bad" IADLs/ADLs: independent Lab Results: Laboratory Tests 07/15 1330 Chemistry Sodium (137 - 145 mmol/L) 140 Potassium (3.5 - 5.1 mmol/L) 4.0 Chloride (98 - 107 mmol/L) 105 Carbon Dioxide (22 - 30 mmol/L) 25 Anion Gap (5 - 16) 10 BUN (7 - 17 mg/dL) 10 Creatinine (0.5 - 1.0 mg/dL) 0.6 Estimated GFR (>60 ml/min) > 60 BUN/Creatinine Ratio (7 - 25 %) 16.7 Glucose (65 - 99 mg/dL) 92 Calcium (8.4 - 10.2 mg/dL) 9.8 Total Bilirubin (0.2 - 1.3 mg/dL) 0.8 AST (14 - 36 U/L) 25 ALT (9 - 52 U/L) 47 Alkaline Phosphatase (<127 U/L) 74 Troponin I (< 0.11 ng/ml) < 0.01 Total Protein (6.3 - 8.2 g/dL) 7.4 Albumin (3.5 - 5.0 g/dL) 4.3 Globulin (1.9 - 4.2 gm/dL) 3.1 Albumin/Globulin Ratio (1.1 - 2.2 %) 1.4 Vitamin B12 (239 - 931 pg/mL) 693 25-OH Vitamin D Total (30 - 100 ng/ml) 26.7 L TSH &T3 &Free T4 Intrp (0.270 - 4.20 uIU/mL) 1.460 Hematology CBC w Diff NO MAN DIFF REQ WBC (4.8 - 10.8 /CUMM) 10.2 RBC (4.20 - 5.40 /CUMM) 5.33 Hgb (12.0 - 16.0 G/DL) 15.2 Hct (37 - 47 %) 45.7 MCV (81.0 - 99.0 FL) 85.7 MCH (27.0 - 31.0 PG) 28.6 RDW (11.5 - 14.5 %) 13.4 Plt Count (130 - 400 /CUMM) 370 MPV (7.4 - 10.4 FL) 7.9 Gran % (42.2 - 75.2 %) 72.8 Lymphocytes % (20.5 - 51.1 %) 20.7 Monocytes % (1.7 - 9.3 %) 5.7 Eosinophils % (0 - 5 %) 0.4 Basophils % (0.0 - 2.0 %) 0.4 Absolute Granulocytes (1.4 - 6.5 /CUMM) 7.4 H Absolute Lymphocytes (1.2 - 3.4 /CUMM) 2.1 Absolute Monocytes (0.10 - 0.60 /CUMM) 0.6 Absolute Eosinophils (0.0 - 0.7 /CUMM) 0 Absolute Basophils (0.0 - 0.2 /CUMM) 0 PUBS MCHC (33.0 - 37.0 G/DL) 33.3 07/15 07/15 1215 1154 Toxicology Urine Opiates Screen (>2000 NG/ML) < 100.00 Methadone Screen (>300 NG/ML) < 40 Cancelled Barbiturate Screen (>200 NG/ML) < 60 Cancelled Ur Phencyclidine Scrn (>25 NG/ML) < 6.00 Cancelled Amphetamines Screen (>1000 NG/ML) < 100 Cancelled U Benzodiazepines Scrn (>200 NG/ML) 699 H Cancelled Urine Cocaine Screen (>300 NG/ML) < 50 Cancelled Urine Cannabis Screen (>50 NG/ML) 61.90 H Cancelled Urines Urinalysis LIGHT H Urine Color (YEL,AMB,STR) YEL Urine Clarity (CLEAR) CLEAR Urine pH (5.0 - 8.0) 6.0 Ur Specific [place] (1.001 - 1.035) 1.010 Urine Protein (NEG,<30 MG/DL) NEG Urine Ketones (NEG) TRACE H Urine Nitrite (NEG) NEG Urine Bilirubin (NEG) NEG Urine Urobilinogen (0.1 - 1.0 EU/dl) 0.2 Ur Leukocyte Esterase (NEG) NEG Ur Microscopic SEDIMENT EXAMINED Urine RBC (0 - 5 /HPF) RARE Urine WBC (0 - 2 /HPF) RARE Ur Epithelial Cells (NONE,FEW) FEW Urine Bacteria (NEG/NONE) RARE H Urine Hemoglobin (NEG) MOD H Urine Glucose (N MG/DL) NEG Diffential Diagnosis: Unspecified anxiety disorder R/O Cannabis-induced anxiety disorder R/O Cannabis use disorder Impression: Patient is a 56-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 Utox showed positive for cannabis. There is suspicion anxiety could be related to possible cannabis intoxication versus withdrawal; however, this is difficult to discern given the limited history elicited about cannabis use. Patient identified potential source of stress as work d/t a recent increase in her work-load. She is motivated for outpatient treatment, is agreeable to following up for medication management/individual therapy in the community. She does not present as an imminent risk to herself or others. Provisional Treatment Plan: 1. Patient was not eligable for [facility] given that she is a [facility] [employer] employee. As a result, she was provided a local list of community mental health providers for medication management/therapy. Patient was agreeable to following up with provider list. 2. Patient was also educated on utilizing Employee [employer] Advisor Program (EAP) to identify in-network mental health providers in the community. Patient verbalized understanding of this. 3. Patient to follow-up with mental health provider for further medication management. 4. Patient advised to abstain from cannabis. 5. In the event of an emergency, call 911/go to nearest emergency department. Patient verbalized understanding of all instruction.
--- NOTE | 2016-07-16 15:18 | Patient Discharge Instructions ---
Discharge Instructions General Discharge Information You were seen/treated for: Generalized Anxiety Disorder Special Instructions: Please call to make an appointment with outpatient psychiatry service via employee assistance program as soon as possible after discharge. In case if your medications finish up before getting an appointment, please arrange to meet your PCP for the same to bridge the gap. In any case, please visit your PCP within seven to ten edy fter discharge. Please return to emergency if symptoms worsen. Diet Continue normal diet: Yes Activity Full Activity/No Limits: Yes Acute Coronary Syndrome Inclusion Criteria At DC or during hospital stay patient has or had the following: ACS DIAGNOSIS No Discharge Core Measures Meds if any: Prescribed or Continued at Discharge Meds if any: NOT Prescribed or Continued at Discharge Congestive Heart Failure Inclusion Criteria At DC or during hospital stay patient has or had the following: CHF DIAGNOSIS No Discharge Core Measures Meds if any: Prescribed or Continued at Discharge Meds if any: NOT Prescribed or Continued at Discharge Cerebrovascular accident Inclusion Criteria At DC or during hospital stay patient has or had the following: CVA/TIA Diagnosis No Discharge Core Measures Meds if any: Prescribed or Continued at Discharge Meds if any: NOT Prescribed or Continued at Discharge Venous thromboembolism Inclusion Criteria VTE Diagnosis No VTE Type NONE VTE Confirmed by (Test) NONE Discharge Core Measures - Per Current guidelines, there needs to be overlap - treatment for the first 5 days of Warfarin therapy. - If discharged on Warfarin prior to 5 days of - overlap therapy, the patient will need to be - assessed for post discharge needs including - *Post discharge parental anticoagulation - *Warfarin and/or parental anticoagulation education - *Follow up date to check INR post discharge At least 5 days overlap therapy as Inpatient No Meds if any: Prescribed or Continued at Discharge Note: Overlap Therapy is Warfarin and Anticoagulant Meds if any: NOT Prescribed or Continued at Discharge
[2016-07-16 15:46] VITALS: BP 140/80
[2016-07-16] MEDS ORDERED: NYSTATIN100000 UNI PO (16:24)
--- NOTE | 2016-07-16 16:27 | Discharge Summary ---
Visit Information Visit Dates Admission Date: 07/15/16 Discharge Date: 07/17/2016 Hospital Course Course Attending Physician: Tyesha BACON MD Primary Care Physician: MALATHI MINA,[facility] Course: Ms Barros is a pleasant 56-year-old female with past medical history of hyperlipidemia, who presented to the ER with chief complaint of nervousness and anxiety for one week after taking Medrol dose-pack for sorethroat. She also admits to having palpitations, insomnia, diarrhea. She apparently did not have any reaction to azithromycin, or her respiratory treatments in the past. Vitals and labs in the ER was normal. UA within normal limits. However, urine tox was positive for benzos and cannabis. She was managed in the general medical floor for the following issues: #Generalized anxiety disorder Patient gave history of anxiety, palpitations, flushing, tremulousness, but denied any ethanol or illicit substance abuse. However her urine analysis for toxicology was positive for cannabis and benzos. Obvious trigger was not evident when asking her in the interview, psychiatry service was also seeked, we did remind the diagnosis, and that she does not possess any risk to herself or anyone else. CASANDRA could have been due to optical reasons, stress, cannabis use, or something else could have contributed to her condition. However, she requires an outpatient follow-up, which she is happy to do so, but because she is an employee of [employer], so she will not be able to join [place]'s outpatient program. She has been directed/offered to seek help for her within Hospital employee assistance program. Of note, her primary care physician had started her on alprazolam and citalopram before she arrived in the emergency department. Her home medications have been continued, but alprazolam has been changed for dosage from every 6 hours to every 8 hours. She is to follow-up with her primary care physician and psychiatric services as soon as she will is discharged from the hospital. Patient is stable and understands the plan, and is willing to follow. Of note, her workup with TSH, Vit B12, intra-abdominal carcinoid with a CAT scan of abdomen, was negative for causes of palpitations and related symptoms, and a 24-hour urine collection for 5-hydroxyindoleacetic acid was pending. Her 25 hydroxyvitamin D was 26.7, low, and was started on supplement. She she was also found to have thrush, and was prescribed antifungal accordingly. #She was placed on regular diet, DVT prophylaxis was provided, and she holds a full CODE STATUS. Allergies: Coded Allergies: erythromycin base (ABD CRAMPING 07/04/16) methylprednisolone (RASH, PALITATIONS, FIDGETY 07/08/16) Disposition Summary Disposition Principal Diagnosis: Generalized Anxiety Disorder Additional Diagnosis: Hyperlipidemia Discharge Disposition: home or self care Discharge Instructions General Discharge Information Code Status: Full Code Patient's Diet: Regular diet, heart healthy Patient's Activity: As tolerated. Follow-Up Instructions/Appts: Please call to make an appointment with outpatient psychiatry service via [employer] assistance program as soon as possible after discharge. In case if your medications finish up before getting an appointment, please arrange to meet your PCP for the same to bridge the gap. In any case, please visit your PCP within seven to ten edy fter discharge. Please return to emergency if symptoms worsen. Medications at Discharge Discharge Medications: Continue taking these medications: Rosuvastatin Calcium (Crestor) 5 MG TABLET 1 Tablet ORAL DAILY Qty = 90 Comments: NOT GIVEN IN HOSPITAL Citalopram Hydrobromide (Citalopram HBr) 20 MG TABLET 1 Tablet ORAL DAILY Qty = 30 Comments: NOT GIVEN IN HOSPITAL Start taking the following new medications: Nystatin (Nystatin) 100,000 UNIT/ML ORAL.SUSP 5 [place] ORAL 4 TIMES A DAY Days = 5 No Refills Comments: Last Taken: 07/17/16 Time: 10AM The following medications have been changed: Old: Alprazolam (Alprazolam) 0.5 MG TABLET 1 Tablet ORAL EVERY 6 HOURS NEEDED as needed for ANXIETY Qty = 30 New: Alprazolam (Alprazolam) 0.5 MG TABLET 1 Tablet ORAL EVERY 8 HOURS NEEDED as needed for ANXIETY Days = 15 Comments: Last Taken: 07/17/16 Time: 3AM Copies To: MALATHI MINA,MELISSA
[2016-07-16 23:04] VITALS: BP 116/86
--- NOTE | 2016-07-17 07:14 | PN- Housestaff ---
Subjective Follow-up For: Anxiety Complaints: no complaints Subjective: Patient stable, and decreased anxiety, you to go home today Review of Systems Constitutional: Reports: no symptoms. Cardiovascular: Reports: no symptoms. Respiratory: Reports: no symptoms. Gastrointestinal: Reports: no symptoms. Genitourinary: Reports: no symptoms. Skin: Reports: no symptoms. Neurological/Psychological: Reports: no symptoms. Objective Last 24 Hrs of Vital Signs/I&O Vital Signs Date Time Temp Pulse Resp B/P Pulse O2 O2 Flow FiO2 Ox Delivery Rate 07/17 07 98.1 78 20 118/78 95 Room Air 07/16 2304 98.0 80 20 116/86 94 Room Air Intake & Output 07/17 1600 07/17 0800 07/17 0000 Intake Total 480 500 Output Total Balance 480 500 Intake, Oral 480 500 Physical Exam General Appearance: Alert, Oriented X3, Cooperative, No Acute Distress Other Physical Findings: General Appearance: Alert, Oriented X3, Cooperative, Mild Distress, anxious Other Physical Findings: General Appearance Alert, Oriented X3, Cooperative, Mild Distress Skin normal HEENT Atraumatic, PERRLA, EOMI Neck Supple, No JVD Lymphatic Cervical nl Cardiovascular Normal S1, Normal S2, No Murmurs, tachycardic Lungs Clear to Auscultation, Normal Air Movement Abdomen Normal Bowel Sounds, Soft, No Tenderness Neurological anxious, tremors +/-, Normal Gait, Normal Speech, Strength at 5/5 X4 Ext, Normal Tone, Sensation Intact, Cranial Nerves 3-12 NL, Reflexes 2+ Extremities No Clubbing, No Cyanosis, No Edema, Normal Pulses Current Medications: Current Medications Sig/Nayana Start time Last Medication Dose Route Stop Time Status Admin Acetaminophen 325 MG Q6P PRN 07/15 1830 DCD PO Alprazolam 1 MG TIDPRN PRN 07/15 194 DCD 07/17 PO 04 194 0322 Atorvastatin Calcium 5 MG 1700 07/16 0100 DCD 07/16 PO 1800 Cholecalciferol 1,000 IU DAILY 07/16 1534 DCD 07/17 PO 0833 Diphenhydramine HCl 25 MG Q6P PRN 07/15 2115 DCD PO Enoxaparin Sodium 40 MG DAILY 07/15 1822 DCD SC Nystatin 5 ML 4 TIMES/DAY 07/16 1000 DCD 07/17 PO 0832 Oxycodone HCl 5 MG Q6P PRN 07/15 1829 DCD PO Oxycodone/ 2 TAB Q6P PRN 07/15 1829 DCD Acetaminophen PO Last 24 Hrs of Lab/Ryan Results Last 24 Hrs of Labs/Mics: Laboratory Tests 07/17/16 0000: Urine Total Volume Pending, U Metanephrines 24 Hr Pending, U Normetanephrine 24h Pending, U Tot Metanephrine 24h Pending Assessment/Plan Assessment: Patient is a 56-year-old female with past medical history of hyperlipidemia, who presented to the ER with chief complaint of nervousness and anxiety for one week after taking Medrol dose-pack for sorethroat. She also admits to having palpitations, insomnia, diarrhea. Vitals and labs in the ER was normal. UA benign He tox positive for benzos and cannabis. She is currently being managed in the general medical floor for the following issues: #Generalized anxiety palpitations, tremor, insomnia: -Continue Xanax 1 mg Q8 HR when necessary for anxiety when discharged today -negative CAT scan of abdomen ruling out intra-abdominal carcinoid, normal TFT, Vit b12 -Awaiting 24-hour urine collection for 5 hydroxyindoleacetic acid level -Psych consultation appreciated. -She can be discharged according to Psych with her home meds for now and follow up with outpatient Psych service as soon as possible. 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 -Discussed with the patient, will discharge the patient accordingly. Attending notified, and agrees with the plan. #Vitamin D level was low, so supplement started at 1000 U daily. Mild pain pathway Regular diet Full code Problem List: 1. Generalized anxiety disorder Pain Ratin Pain Location: - Pain Goal: Remain pain free Pain Plan: prn Tomorrow's Labs & Rationales: -
[2016-07-17 07:31] VITALS: BP 118/78
--- NOTE | 2016-07-17 08:47 | PN- Pulmonary ---
Subjective HPI/Critical Care Issues: The patient is awake and alert. She reports that she is feeling improved overall however she continues to have intermittent anxiety. Her symptoms are improved with Xanax. She denies any chest pain, jaw pain, arm pain, fever or chills. She has no shortness of breath. She offers no new complaints today. Objective Current Medications: Current Medications Sig/Nayana Start time Last Medication Dose Route Stop Time Status Admin Acetaminophen 325 MG Q6P PRN 07/15 1830 AC PO Alprazolam 1 MG TIDPRN PRN 07/15 1945 AC 07/17 PO 07/22 194 0322 Atorvastatin Calcium 5 MG 1700 07/16 0100 AC 07/16 PO 1800 Cholecalciferol 1,000 IU DAILY 07/16 1534 AC 07/17 PO 0833 Diphenhydramine HCl 25 MG Q6P PRN 07/15 2115 AC PO Enoxaparin Sodium 40 MG DAILY 07/15 1822 AC SC Nystatin 5 ML 4 TIMES/DAY 07/16 1000 AC 07/17 PO 0832 Oxycodone HCl 5 MG Q6P PRN 07/15 1830 AC PO Oxycodone/ 2 TAB Q6P PRN 07/15 1830 AC Acetaminophen PO Patient Medication 1 ED .STK-MED ONE 07/16 1358 DC Teaching ED 07/16 1359 Vital Signs & I&O Last 24 Hrs of Vitals and I&O: Vital Signs Date Time Temp Pulse Resp B/P Pulse O2 O2 Flow FiO2 Ox Delivery Rate 07/17 0731 98.1 78 20 118/78 95 Room Air 07/16 2304 98.0 80 20 116/86 94 Room Air 07/16 1546 97.9 74 20 140/80 98 Intake & Output 07/17 1600 07/17 0800 07/17 0000 Intake Total 480 500 Output Total Balance 480 500 Intake, Oral 480 500 Physical Exam General Appearance Alert, Oriented X3, Cooperative Skin flushed HEENT Atraumatic, PERRLA, EOMI Neck Supple, No JVD Lymphatic Cervical nl Cardiovascular Normal S1, Normal S2, No Murmurs Lungs Clear to Auscultation, Normal Air Movement Abdomen Normal Bowel Sounds, Soft, No Tenderness Extremities No Clubbing, No Cyanosis, No Edema, Normal Pulses Results Last 24 Hrs of Lab Results: Laboratory Tests 07/17/16 0000: Urine Total Volume Pending, U Metanephrines 24 Hr Pending, U Normetanephrine 24h Pending, U Tot Metanephrine 24h Pending Diagnostic Data CT Scan Findings: 1. No acute intra-abdominal or pelvic abnormality. No definite intra-abdominal tumor identified on this noncontrast examination. 2. Mild sigmoid diverticulosis without CT evidence of acute diverticulitis. Impression/Plan Impression/Plan Impression/Plan: 1. Anxiety/panic attacks. 2. History of hyperlipidemia. 3. Urine tox screen positive for benzos and cannabis. 4. Thrush. Recommendations: * Appreciate psychiatry input, will follow recommendations. * Continue Xanax as needed. * Nystatin swish and swallow for thrush. * Continue the patient on the pain pathway. * DVT prophylaxis. * Discussed case with Dr. Edward - the patient will follow up in his office next week. * Out patient psych follow up arranged. * She will continue on citalopram and Xanax (0.5 mg TID PRN) upoon discharge. * Continue all supportive care.
[2016-07-17] MEDS ORDERED: ALPRAZOLAM0.5 M4 PO (10:30)
--- NOTE | 2016-07-18 08:22 | NUR ---
Late Entry: Aware of patients discharge home yesterday. Asked by Dr. Gutierrez to meet with this patient. 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 Seen and evaluated by Nuzhat Bradford APRN of psychiatry. I met with Jammie yesterday morning. She was awake and alert; fearful of current anxiety level. Reviewed with her how to access outpatient counselling via the employee assistance program; provided her with brochure for same.
== END 2016-07-17 12:50 ==
LOC: ENRESERVTM → ENRESERVDT → ERH 11:13 → 2NA 13:21 → ERHI 13:21 → ENPENDDIS 13:21 → 2NA 20:53
PROVIDERS: Emergency Medicine; ADMIT Internal Medicine Pulmonary Disease
DX: F41.9 Anxiety disorder, unspecified (principal); E78.5 Hyperlipidemia, unspecified; R00.2 Palpitations; G47.00 Insomnia, unspecified; R19.7 Diarrhea, unspecified; B37.9 Candidiasis, unspecified
CPT/HCPCS: 6030; 74176; 80307; 81001; 93005; 93010; 96372; 99233; G0378; J1650

== ENCOUNTER 2017-12-02 18:23 | Emergency (ER) | payer OTHER ==
[~2017-12-02] VITALS: Ht 157.5 cm; Wt 77.1 kg
[~2017-12-02 18:23] MED LIST changes: +ALPRAZOLAM0.5 M4 PO; +CITALOPRAM HBR20 MG PO; +NYSTATIN100000 UNI PO
[2017-12-02 19:09] LABS: ABSOLUTE BASOPHIL COUNT 0 /CUMM (0.0-0.2); ABSOLUTE EOSINOPHIL COUNT 0 /CUMM (0.0-0.7); ABSOLUTE GRANULOCYTE CT 8.3 /CUMM (1.4-6.5); ABSOLUTE LYMPH COUNT 2.6 /CUMM (1.2-3.4); ABSOLUTE MONOCYTE COUNT 0.9 /CUMM (0.10-0.60); BASOPHIL % 0.4 % (0.0-2.0); EOSINOPHIL % 0.2 % (0-5); MEAN CORPUSCULAR HGB 29.1 PG (27.0-31.0); MEAN CORPUSCULAR HGB CONC 33.8 G/DL (33.0-37.0); MEAN CORPUSCULAR VOLUME 86.1 FL (81.0-99.0); MEAN PLATELET VOLUME 7.7 FL (7.4-10.4); PLATELET COUNT 424 /CUMM (130-400); RBC DISTRIBUTION WIDTH 13.4 % (11.5-14.5); RED BLOOD CELL CT 5.23 /CUMM (4.20-5.40); WHITE BLOOD CELL COUNT 11.9 /CUMM (4.8-10.8)
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
[2017-12-02] MEDS ORDERED: XANAX1 M1 PO (20:21)
[2017-12-02 20:28] VITALS: BP 132/80
== END 2017-12-02 20:28 ==
LOC: ERH 18:23
PROVIDERS: Physician Assistant Medical
DX: F41.1 Generalized anxiety disorder (principal); R07.89 Other chest pain
CPT/HCPCS: 93005; 93010